=== PATIENT | male | born 1995 | race African-American/Black ===

== ENCOUNTER 2019-03-24 17:05 | Day surgery (SDC) | payer BC ==
[~2019-03-24 17:05] MED LIST: Dexamethasone 20 MG/5 ML VIAL ONE; Glycopyrrolate 0.2 MG/ML 5 ML SYRINGE ONE; Ketorolac Tromethamine 30 MG/ML VIAL ONE; Lidocaine 1% PF 5 ML VIAL ONE; Ondansetron PF 4 MG/2 ML Vial ONE; PROPOFOL 200 MG/20 ML VIAL ONE; Rocuronium Bromide 10 MG/ML (10ML VIAL) ONE
[2019-03-24] MEDS ORDERED: Sodium Chloride 0.9% 100 ML ONE (17:12)
[2019-03-24] MEDS ORDERED: cefOXitin 2 GM VIAL ONE (17:12)
[2019-03-24] MEDS ORDERED: Bupivacaine/Epinephrine 0.25% 30 ML VIAL ONE (17:27)
[2019-03-24] MEDS ORDERED: Fentanyl 100 MCG/2 ML VIAL ONE (18:22)
[2019-03-24] MEDS ORDERED: SUGAMMADEX SODIUM 200 MG/2 ML VIAL ONE (19:10)
--- NOTE | 2019-03-25 08:32 | OP ---
DATE OF PROCEDURE: 03/24/2019 PREOPERATIVE DIAGNOSIS: Acute appendicitis. PROCEDURE PERFORMED: Laparoscopic appendectomy. INDICATIONS: This is a 23-year-old male with a 1-week history of right lower quadrant abdominal pain associated with nausea. CT scan shows appendicitis. FINDINGS: Acute suppurative nonperforated appendicitis. DESCRIPTION OF PROCEDURE: After informed consent was obtained, the patient was taken to the operating room and given general endotracheal anesthesia, placed in supine position. Abdomen was prepped and draped in usual fashion. Local anesthesia infiltrated subcutaneously and deep and a subumbilical incision was performed. Subcu divided sharply. The fascia grasped and 2 stay sutures of 0 Vicryl placed in each side of midline. Midline incised. Digital palpation revealed no local adhesions. A blunt 12 mm trocar was inserted. Pneumoperitoneum was created to a pressure of 15 mmHg. A 0-degree laparoscope was inserted under direct vision. Two 5 mm ports were placed, one suprapubic, one right lateral abdomen. The appendix was grasped and the mesoappendix divided with the LigaSure. The base of the appendix was divided with a 45 mm white load stapler. The appendix was placed in endosac, removed from the abdomen in the endosac. Hemostasis was assured. The abdomen was irrigated. Irrigation fluid was removed. Trocars and retractors were removed. The fascia was closed with interrupted 0 Vicryl suture. The skin was closed with interrupted 4-0 Rapide. Dermabond was applied. The patient tolerated the procedure well, transferred to Recovery in good condition. Sponge and needle count verified correct x2. Job ID: [id number]
== END 2019-03-24 21:51 | disposition home or self-care (01) ==
LOC: SDC 17:05
PROVIDERS: ATTEND Surgery
PROC: 0DTJ4ZZ Resection of Appendix, Percutaneous Endoscopic Approach (ICD-10-PCS; principal; 2019-03-24)
DX: K35.80 Unspecified acute appendicitis (principal); Z88.0 Allergy status to penicillin
CPT/HCPCS: 88304; J0131; J0694; J1100; J1885; J2001; J2405; J2704; J3010; J3490